=== PATIENT | male | born 1975 | race Caucasian/White ===

== ENCOUNTER 2018-06-10 22:16 | Emergency (ER) | payer OTHER ==
[~2018-06-10] VITALS: Ht 175.3 cm; Wt 84.9 kg
[~2018-06-10 22:16] MED LIST: DIVA500T4; LEVE500T53
[2018-06-10 22:18] VITALS: BP 130/80
[2018-06-10] MEDS ORDERED: LORA-445 PO (22:22)
[2018-06-10] MEDS ORDERED: LAMO300T2 PO (22:22)
[2018-06-10] MEDS ORDERED: KETOROLAC 30 MG/1 ML ONE (23:15)
[2018-06-10] MEDS ORDERED: KETOROLAC 30 MG/1 ML IM ONE (23:30)
== END 2018-06-10 23:32 | disposition home or self-care (01) ==
LOC: ED 23:05
DX: S43.422A Sprain of left rotator cuff capsule, initial encounter (principal); X50.9XXA Other and unspecified overexertion or strenuous movements or postures, initial encounter; Y93.89 Activity, other specified; Y92.098 Other place in other non-institutional residence as the place of occurrence of the external cause; Y99.8 Other external cause status
CPT/HCPCS: 73030; 96372; 99284; J1885

== ENCOUNTER 2018-12-08 15:55 | Outpatient (CLI) | payer OTHER ==
[~2018-12-08 15:55] MED LIST changes: +LAMO300T2 PO; +LORA-445 PO
== END 2018-12-08 23:59 | disposition home or self-care (01) ==
LOC: CFH 15:55
PROVIDERS: ATTEND Internal Medicine Cardiovascular Disease
DX: R07.89 Other chest pain (principal); R03.0 Elevated blood-pressure reading, without diagnosis of hypertension
CPT/HCPCS: 93306

== ENCOUNTER 2019-01-17 13:35 | Outpatient (CLI) | payer OTHER ==
[2019-01-17] MEDS ORDERED: LIDOCAINE-MPF 1%, 5ML ONE ×2 (13:46→14:18)
[2019-01-17] MEDS ORDERED: ROPivacaine/PF 0.2%, 10 ML ONE (14:15)
== END 2019-01-17 23:59 | disposition home or self-care (01) ==
LOC: RAD 13:35
PROVIDERS: ATTEND Physician Assistant Surgical
DX: M24.412 Recurrent dislocation, left shoulder (principal)
CPT/HCPCS: 23350; 73040; 73222; J2795; Q9965